=== PATIENT | female | born 1950 | race Caucasian/White ===

== ENCOUNTER → 2019-03-08 | Day surgery (SDC) | payer MEDICARE ==
[~2019-03-08] MED LIST: AMITRIPTYLINE H25 MG PO; ANTIDIARRHEAL2 MG PO; CALCIUM 600 +1 EAC8 PO; CARBAMAZEPINE100 M1 PO; CYMBALTA60 MG PO; DEXILANT60 MG PO; DIAZEPAM10 MG PO; DICYCLOMINE HCL20 MG PO; DIPYRIDAMOLE50 MG PO; FENTANYL CITRATE/PF 100MCG/2 ML INJ ONE; FISH OIL 1,2001 EACH PO; FUROSEMIDE40 MG PO; GABAPENTIN100 MG PO; HORIZANT600 MG PO; HYDROCODON-ACE1 EAC9 PO; LEVOTHYROXINE50 MCG PO; LIDOCAINE HCL 2% LOCAL INJ 5 ML SDV VIAL INJ ONE; LIDODERM700 MG TOP; MIDAZOLAM HCL 2 MG/2 ML VIAL ONE; NASONEX17 GM NS; NEXIUM40 MG PO; OMEPRAZOLE40 MG PO; ONDANSETRON ODT8 MG PO; POTASSIUM CHLO20 ME1 PO; PRENATABS RX T1 EACH PO; PROAIR HFA INH8.5 GM INH; PROPOFOL IV EMULSION 10 MG/ML 20 ML VIAL ONE; PROPRANOLOL HCL20 MG PO; ROPINIROLE HCL1 MG PO; SUCRALFATE1 GM PO; TUMS DUAL ACTI1 EACH PO; ULTRAM 50MG50 MG PO; VITAMIN B12 INJ IM; VITAMIN D32000 UNIT PO; VITAMIN D400 UNIT PO
--- OUTSIDE RECORDS SUMMARY | 2019-03-08 11:24 | XMS REPORT | Clinical Summary ---
Author Author [facility] [employer] Organization [place] [employer] Address Unknown Phone Unavailable Care Team Providers Care Contract Administration Specialist Name Role Phone Roshan Stewart MD PCP Unavailable Allergies Comments Active Allergy Reactions Severity Noted Date Cefaclor Swelling 06/01/2017 Nsaids (Non-Steroidal GI Bleeding 06/01/2017 Anti-Inflammatory Drug) Medications End Date Status Medication Sig Dispensed Refills Start Date Active PROAIR HFA 90 2 PUFFS 1 mcg/actuation inhaler NEEDED EVERY 7 4 HRS INHALATION 30 DAYS Active carisoprodol (SOMA) 350 Take 350 mg 0 MG tablet by mouth 3 7 (three) times a day. Active clopidogrel (PLAVIX) 75 Take 75 mg by 0 mg tablet mouth once 7 daily. Active diazePAM (VALIUM) 10 MG Take 10 mg by 0 tablet mouth daily 7 as needed. Active DULoxetine (CYMBALTA) 60 1 CAPSULE 0 MG capsule ONCE A DAY 7 ORALLY 90 DAYS Active levothyroxine (SYNTHROID, Take 50 mcg 3 LEVOXYL) 50 mcg tablet by mouth once 7 daily. Active potassium chloride 20 mEq 1 TABLET ONCE 1 tablet extended release A DAY ORALLY 7 90 DAYS Active propranolol (INDERAL) 20 Take 20 mg by 0 MG tablet mouth 3 7 (three) times a day. Active sucralfate (CARAFATE) 1 TAKE 1 TABLET 5 gram tablet BY MOUTH 3 7 TIMES A DAY AND AT BEDTIME Active furosemide (LASIX) 40 mg Take 40 mg by 0 tablet mouth 2 (two) times a day. Active Take 1 tablet 0 vit,[id number] 29 by mouth mg iron- 1 mg tablet per daily. tablet Active lidocaine (XYLOCAINE) 5 % APPLY TO 0 ointment AFFECTED AREA 7 3-4 TIMES PER DAY Active gabapentin enacarbil Take 600 mg 0 (HORIZANT) 600 mg tablet by mouth extended release daily. Active omega 8-wep-kra-fish oil Take by 0 (FISH OIL) 100-160-1,000 mouth. mg capsule Active cholecalciferol, vitamin Take 2,000 0 D3, (VITAMIN D3) 2,000 Units by unit capsule capsule mouth daily. Active ondansetron (ZOFRAN) 8 MG Take 8 mg by 0 tablet mouth once 7 daily. Active HYDROcodone-acetaminophen 0 (NORCO) 10-325 mg per 9 tablet Active rOPINIRole (REQUIP) 2 MG 0 tablet 9 12/15/2018 Discontinued DEXILANT 60 mg capsule Take by mouth 0 once daily. 7 09/24/2018 Discontinued gabapentin (NEURONTIN) 1 CAPSULE 0 300 mg capsule THREE TIMES A 7 DAY ORALLY 30 DAYS 09/24/2018 Discontinued HYDROcodone-acetaminophen Take 1 tablet 0 (NORCO) 10-325 mg per by mouth 7 tablet nightly as needed for severe pain (score 7-10). 12/15/2018 Discontinued ondansetron ODT Take 8 mg by 0 (ZOFRAN-ODT) 8 MG mouth every 8 disintegrating tablet (eight) hours as needed for nausea or vomiting. 10/14/2018 nicotine (NICODERM CQ) 14 Place 1 patch 30 patch 0 mg/24 hr on the skin 9 daily for 30 days. 10/08/2018 HYDROcodone-acetaminophen Take 1 tablet 20 tablet 0 (NORCO) 10-325 mg per by mouth 9 tablet nightly as needed for moderate pain for up to 20 doses. Max Daily Amount: 1 tablet 12/02/2018 Discontinued nicotine (NICODERM CQ) 14 Place 1 patch 30 patch 0 mg/24 hrIndications: on the skin 9 Traumatic closed daily for 30 displaced fracture of days. proximal end of humerus with nonunion, right 01/01/2019 nicotine (NICODERM CQ) 14 Place 1 patch 30 patch 0 mg/24 hr on the skin 9 daily for 30 days. 12/15/2018 Discontinued sulfamethoxazole-trimetho Take 1 tablet 8 tablet 0 prim (BACTRIM DS) 800-160 by mouth 2 9 mg per tablet (two) times a day for 4 days. 12/15/2018 Discontinued gabapentin (NEURONTIN) 0 600 mg tablet 9 12/29/2018 HYDROcodone-acetaminophen Take 1 tablet 35 tablet 0 (NORCO) 10-325 mg per by mouth 9 tablet every 6 (six) hours as needed for moderate pain for up to 35 doses. 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, right Pain of right forearm 09/24/2018 Closed displaced comminuted fracture of shaft of right humerus 09/24/2018 Current every day smoker 09/24/2018 Humerus fracture 09/12/2018 Other chronic pain 06/17/2017 Trigger index finger of left hand 05/21/2017 Encounters Care Team Description Date Type Specialty Elmer Zarate MD Closed displaced comminuted fracture of shaft of right humerus with routine healing, subsequent encounter (Primary Dx) 02/10/2019 Office Visit Orthopedic Surgery Elmer Zarate MD Pain of right upper extremity (Primary Dx) 01/05/2019 Office Visit Orthopedic Surgery Elmer Zarate MD 12/29/2018 Telephone Orthopedic Surgery lEmer Zarate MD 12/29/2018 Telephone Orthopedic Surgery Sebastien Franco MD 12/21/2018 Anesthesia General Surgery Event Elmer Zarate MD OPEN REDUCTION INTERNAL FIXATION OF NON UNION RIGHT HUMERUS 12/21/2018 Surgery General Surgery Elmer Zarate MD 12/21/2018 [facility] General Internal Medicine - Encounter 12/22/2018 Elmer Zarate MD 12/15/2018 Telephone Orthopedic Surgery Elmer Zarate MD 12/15/2018 Telephone Orthopedic Surgery Elmer Zarate MD 12/14/2018 Orders Only Orthopedic Surgery Elmer Zarate MD 12/14/2018 Prep for Orthopedic Surgery Surgery Elmer Zarate MD Closed displaced comminuted fracture of shaft of right humerus, sequela 12/13/2018 Hospital Radiology Encounter Elmer Zarate MD Closed displaced comminuted fracture of shaft of right humerus, sequela (Primary Dx) 12/13/2018 Transcribe Access Orders Elmer Zarate MD 12/06/2018 Telephone Orthopedic Surgery Elmer Zarate MD Closed displaced comminuted fracture of shaft of right humerus with routine healing, subsequent encounter (Primary Dx); 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, right 12/02/2018 Office Visit Orthopedic Surgery Elmer Zarate MD 12/02/2018 Telephone Orthopedic Surgery Elmer Zarate MD Right arm pain (Primary Dx); Closed comminuted fracture of shaft of right humerus, initial encounter; Current every day smoker 10/28/2018 Office Visit Orthopedic Surgery Elmer Zarate MD Pain of right forearm (Primary Dx); Closed comminuted fracture of shaft of right humerus, initial encounter; Current every day smoker; Other chronic pain 09/24/2018 Office Visit Orthopedic Surgery Elmer Zarate MD 09/24/2018 Telephone Orthopedic Surgery Elmer Zarate MD 09/23/2018 Telephone Orthopedic Surgery Liliana Koroma RN 09/13/2018 Patient Quality Outreach Cory Saldivar Jr., MD Foreman, MD Rosemarie Johnson, Alannah Guidry MD Closed displaced comminuted fracture of shaft of right humerus with routine healing, subsequent encounter (Primary Dx) 09/11/2018 Emergency General Surgery - 09/13/2018 Roshan Stewart MD Lump or mass in breast (Primary Dx) 04/07/2018 Transcribe Access Orders after 03/07/2018 Family History Medical History Relation Name Comments No Known Problems Father Diabetes Mother Heart disease Mother Hypertension Mother Relation Name Status Comments Father Mother Social History Date Tobacco Use Types Packs/Day Years Used Current Every Day Smoker Cigarettes 1 45 Smokeless Tobacco: Never Used Tobacco Cessation: Ready to Quit: Yes; Counseling Given: Yes Alcohol Use Drinks/Week oz/Week Comments Yes SOCIALLY Sex Assigned at Date Recorded Not on file Industry Job Start Date Occupation Not on file Not on file Not on file Travel End Travel History Travel Start No recent travel history available. Last Filed Vital Signs Time Taken Vital Sign Reading 12/22/2018 7:11 AM CDT Blood Pressure 96/62 12/22/2018 7:11 AM CDT Pulse 82 12/22/2018 7:11 AM CDT Temperature 36.3 C (97.4 F) 12/22/2018 7:11 AM CDT Respiratory Rate 19 12/22/2018 7:11 AM CDT Oxygen Saturation 96% - Inhaled Oxygen - Concentration 01/05/2019 2:26 PM CDT Weight 53.5 kg (118 lb) 01/05/2019 2:26 PM CDT Height 160 cm (5' 3") 01/05/2019 2:26 PM CDT Body Mass Index 20.9 Plan of Treatment Care Team Description Date Type Specialty Elmer Zarate MD [address] [place] [address] [phone] 03/24/2019 Office Visit Orthopedic Surgery Health Maintenance Due Date Last Done Comments COLONOSCOPY SCREENING 2002 SHINGLES VACCINES (#1) 2002 BREAST CANCER SCREENING 03/10/2013 03/10/2011 65+ PNEUMOCOCCAL VACCINE 2017 (1 of 2 - PCV13) INFLUENZA VACCINE 03/24/2019 Implants Device Identifier Shelf Expiration Date Model / Serial / Lot Implanted Type Area Manufactur er [id number] / / VENDOR LOT NA Prx Hum Lo Plt Rt 7h 133mm - IPM Right: Shoulder [employer] [id number] IMPLANT Implanted: Qty: 1 on 12/21/2018 by DEVICES Elmer Zarate MD [id number] / / VENDOR LOT NA 305x24 Cortical Screw - [id number] IPM Right: Shoulder [employer] Implanted: Qty: 1 on 12/21/2018 by IMPLANT Elmer Zarate MD DEVICES [id number] / / VENDOR LOT NA 3.5mm Cortical Screw 30mm - IPM Right: Shoulder [employer] [id number] IMPLANT Implanted: Qty: 1 on 12/21/2018 by Elmer Bansal MD [id number] / / Screw T15 Lp Cesar 3.5x26mm Ns - IPM N/A: N/A [employer] [id number] IMPLANT Implanted: Qty: 1 on 12/21/2018 by Elmer Bansal MD [id number] / / Screw T15 Lp Cesar 3.5x26mm Ns - IPM N/A: N/A [employer] [id number] IMPLANT Implanted: Qty: 1 on 12/21/2018 by Elmer Bansal MD [id number] / / VENDOR LOT NA Screw T15 Lp Cesar 3.5x42mm Ns - IPM Right: Shoulder [employer] [id number] IMPLANT Implanted: Qty: 1 on 12/21/2018 by DEVICES Elmer Zarate MD [id number] / / VENDOR LOT NA 4.0mm X 48mm Cancellous Locking Ortho Right: Shoulder BIOMET Screw Screw SPINE, Implanted: Qty: 1 on 12/21/2018 by Elliot DIETRICH Mark E., MD BRACING, OSTEO ([employer]) [id number] / / VENDOR LOT NA Screw Bone Canc Lkng 4x40mm Ns - Orthopedic Right: Shoulder DEPUY [id number] Trauma ORTHO-HIPS Implanted: 12/21/2018 (Quantity not Implants on file) [id number] / / VENDOR LOT NA Screw Bone Canc Lkng 4x38mm Ns - Orthopedic Right: Shoulder DEPUY [id number] Trauma ORTHO-HIPS Implanted: 12/21/2018 (Quantity not Implants on file) [id number] / / VENDOR LOT NA Screw Bone Cesar Lkng 3.5x24mm Ns - Orthopedic Right: Shoulder DEPUY [id number] Trauma ORTHO-HIPS Implanted: Qty: 1 on 12/21/2018 by Implants Elmer Zarate MD [id number] / / VENDOR LOT NA Screw Bone Cesar Lkng 3.5x24mm Ns - Orthopedic Right: Shoulder DEPUY [id number] Trauma ORTHO-HIPS Implanted: Qty: 1 on 12/21/2018 by Implants Elmer Zarate MD [id number] / / VENDOR LOT NA Screw Bone Cesar Lkng 3.5x24mm Ns - Orthopedic Right: Shoulder DEPUY [id number] Trauma ORTHO-HIPS Implanted: Qty: 1 on 12/21/2018 by Implants Elmer Zarate MD [id number] / / Screw Bone Cesar Lkng 3.5x28mm Ns - Orthopedic N/A: N/A DEPUY [id number] Trauma ORTHO-HIPS Implanted: Qty: 1 on 12/21/2018 by Elmer Mccann MD [id number] / / Screw Bone Cesar Lkng 3.5x28mm Ns - Orthopedic N/A: N/A DEPUY [id number] Trauma ORTHO-HIPS Implanted: Qty: 1 on 12/21/2018 by Implants Elmer Zarate MD [id number] / / VENDOR LOT NA Screw Bone Canc Lkng 4x38mm Ns - Orthopedic Right: Shoulder DEPUY [id number] Trauma ORTHO-HIPS Implanted: 12/21/2018 (Quantity not Implants on file) [id number] / / VENDOR LOT NA Screw Bone Canc Lkng 4x40mm Ns - Orthopedic Right: Shoulder DEPUY [id number] Trauma ORTHO-HIPS Implanted: 12/21/2018 (Quantity not Implants on file) Artificial Knees Procedures Comments Procedure Name Priority Date/Time Associated Diagnosis XR HUMERUS RIGHT Routine 02/10/2019 Closed displaced 10:02 AM CDT comminuted fracture of shaft of right humerus with routine healing, subsequent encounter XR HUMERUS RIGHT Routine 01/05/2019 Pain of right upper 2:38 PM CDT extremity HIV 1, 2 ANTIBODY Routine 12/21/2018 5:41 PM CDT HEPATITIS C ANTIBODY Routine 12/21/2018 5:41 PM CDT HEPATITIS B CORE ANTIBODY Routine 12/21/2018 IGM 5:41 PM CDT HEPATITIS B SURFACE Routine 12/21/2018 ANTIGEN 5:41 PM CDT MS AN PERIPHERAL BLOCK Routine 12/21/2018 POST-OP PAIN 1:11 PM CDT Procedure Note - Marci Zamora MD - 12/21/2018 1:11 PM CDT Peripheral Block Date/Time: 12/21/2018 12:24 PM Performed by: Marci Zamora MD Authorized by: Marci Zamora MD Patient Location: Pre-op Start Time: 12/21/2018 12:15 PM End Time: 12/21/2018 12:25 PM Reason for Block: post-op pain management Staff: Anesthesio logist: Marci Zamora MD Performed by: Anesthesio logist Preprocedu re: patient identified , IV checked, site and side verified, risks and benefits discussed, procedure verified, surgical consent complete, patient position confirmed, monitors and equipment checked, pre-op evaluation complete and site marked Time Out Performed: 12/21/2018 12:15 PM Peripheral Nerve Block: Patient Position: Supine Prep: ChloraPrep Monitoring : Blood pressure monitoring , continuous pulse oximetry and heart rate Block Type: Interscale ne Laterality : Right Injection Technique: Single injection Procedures : ultrasound guided and nerve stimulator Ultrasound documentat ion: Images saved on hard disk Local Infiltrati on (See MAR for details): Lidocaine Needle: Needle Type: Pajunk Needle Gauge: 22 G Needle Length: 5 cm Assessment : Injection Assessment : Visualized needle/loc al anesthetic surroundin g nerve, visualized pertinent vascular structures and nerves, needle tip visualized at all times during injection of medication , intermitte nt aspiration during local anesthetic administra tion and no symptoms of intraneura l/intraven ous injection Paresthesi a Pain: None Heart Rate Change: No Slow Fractionat ed Injection: Yes Block outcome: No apparent complicati ons, patient comfortabl e and patient tolerated procedure well Medication s Administer ed Bupivacain e liposome (EXPAREL), 10 mL ESTIMATED GFR Routine 12/13/2018 2:28 PM CDT URINALYSIS, AUTOMATED Routine 12/13/2018 Closed displaced WITH MICROSCOPY 2:28 PM CDT comminuted fracture of shaft of right humerus, initial encounter PARTIAL THROMBOPLASTIN Routine 12/13/2018 Closed displaced TIME (PTT) 2:28 PM CDT comminuted fracture of shaft of right humerus, initial encounter PROTHROMBIN TIME WITH INR Routine 12/13/2018 Closed displaced 2:28 PM CDT comminuted fracture of shaft of right humerus, initial encounter BASIC METABOLIC PANEL Routine 12/13/2018 Closed displaced 2:28 PM CDT comminuted fracture of shaft of right humerus, initial encounter CBC HEMOGRAM Routine 12/13/2018 Closed displaced 2:28 PM CDT comminuted fracture of shaft of right humerus, initial encounter XR CHEST 2 VW Routine 12/13/2018 Closed displaced 2:04 PM CDT comminuted fracture of shaft of right humerus, sequela XR HUMERUS RIGHT Routine 12/02/2018 Closed displaced 10:19 AM CDT comminuted fracture of shaft of right humerus with routine healing, subsequent encounter XR HUMERUS RIGHT Routine 10/28/2018 Right arm pain 10:57 AM [facility] XR HUMERUS RIGHT Routine 09/24/2018 Closed displaced 12:19 PM [facility] comminuted fracture of shaft of right humerus, initial encounter XR FOREARM 2 VW RIGHT Routine 09/24/2018 Pain of right forearm 11:33 AM [facility] XR KNEE 3 VW RIGHT Routine 09/12/2018 4:[address] CHEST WO CONTRAST STAT 09/12/2018 1:17 AM [facility] XR HUMERUS RIGHT STAT 09/12/2018 12:43 AM [facility] ESTIMATED GFR STAT 09/12/2018 12:37 AM [facility] TROPONIN STAT 09/12/2018 12:37 AM [facility] COMPREHENSIVE METABOLIC STAT 09/12/2018 PANEL 12:37 AM [facility] HC COMPLETE BLD COUNT STAT 09/12/2018 W/AUTO DIFF 12:37 AM [facility] after 03/07/2018 Results * XR Humerus Right (02/10/2019 10:02 AM CDT) Only the most recent of 6 results within the time period is included. Specimen Narrative Performed At [facility] three-view x-rays of the right proximal humerus: The reconstructive locking plate remains secured and there is no evidence of loosening or haloing around the screws.There is no evidence of implant shift or failure.Fracture sites however remain visible and I am not seeing a clear bridging new bone Performing Organization Address City/State/Zipcode Phone Number [facility] [address] [place] [address] * Hepatitis C antibody (12/21/2018 5:41 PM CDT) Hepatitis C Ab Non-reactive Non-reactive [facility] Specimen Performing Organization Address City/State/Zipcode Phone Number [facility] [place] [address] [place] [address] PATHOLOGY AND GENOMIC MEDICINE [place] [address] * Hepatitis B core antibody IgM (12/21/2018 5:41 PM CDT) Hepatitis B Non-reactive Non-reactive [place] core IgM [facility] Specimen Performing Organization Address City/State/Zipcode Phone Number [facility] [place] [place] [address] [place] [address] [facility] [address] * HIV 1, 2 antibody (12/21/2018 5:41 PM CDT) Pathologist [facility] HIV 1, 2 Non-Reactive Non-reactive [place] antibody Comment: [facility] Starting from November 20 2015, [facility] 4th generation HIV screening HOSPITAL and confirmation assays are in use at [facility], consistent with the CDC-recommended algorithm. The screening test detects antibodies to HIV-1, HIV-2 and the p24 antigen. Positive screening results will be automatically reflexed to a HIV-1/HIV-2 differentiation assay. Indeterminant HIV-1 results will be further automatically reflexed to a nucleic acid test for detection of acute infection. Western blot will no longer be performed as a confirmation test. For a quick reference guide on the testing algorithm, please refer to: http://stacks.cdc.gov/view/cdc /12482. Specimen Performing Organization Address City/State/Zipcode Phone Number [facility] [place] [place] [address] [place] [phone] [facility] [address] * Hepatitis B surface antigen (12/21/2018 5:41 PM CDT) Hepatitis B Non-reactive Non-reactive [place] surface Ag [facility] Specimen Performing Organization Address City/State/Zipcode Phone Number [facility] [place] [address] [place] [address] PATHOLOGY [facility] [address] * Estimated GFR (12/13/2018 2:28 PM CDT) Only the most recent of 2 results within the time period is included. Estimated GFR >=90 mL/min/1.73 m2 [place] Comment: [facility] G1 >=90 Normal or high G2 60-89Mildly decreased [id number] Mildly to moderately decreased S1r50-43 Moderately to severely decreased G4 15-29Severely decreased G5 <15Kidney failure The eGFR was calculated using the Chronic Kidney Disease Epidemiology Collaboration (CKD-EPI) equation. Interpretation is based on recommendations of the National Kidney Foundation-Kidney Disease Outcomes Quality Initiative (NKF-KDOQI) published in 2014. Specimen Plasma specimen Performing Organization Address City/State/Zipcode Phone Number [facility] [place] [place] [address] [place] [address] PATHOLOGY AND GENOMIC MEDICINE [place] [id number] * Urinalysis, automated with microscopy (12/13/2018 2:28 PM CDT) Color, UA Rea [facility] Appearance, UA Clear [facility] Specific 1.032 1.001 - 1.035 [place] gravity, [facility] pH, UA 5.0 5.0 - 8.5 [facility] Protein, UA 1+ (A) Negative [facility] Glucose, UA Negative Negative [facility] Ketones, UA Trace (A) Negative [facility] Bilirubin, UA 2+ (A)Comment: Confirmation of Negative [place] results no longer performed [facility] due to unavailability of [facility] Blood, UA Negative Negative [facility] Nitrite, UA Negative Negative [facility] Urobilinogen, 4.0 (A) <2.0 [facility] Leukocyte Moderate (A) Negative [place] esterase, UA [facility] Epithelial Many /HPF [place] cells, UA [facility] WBC, UA 6 (H) 0 - 5 /HPF [facility] RBC, UA 4 0 - 5 /HPF [facility] Bacteria, UA None seen None seen [facility] Calcium oxalate Moderate [place] crystals, UA [facility] Yeast, UA None seen [facility] Yeast with None seen [place] pseudohyphae, [facility] Specimen Urine Performing Organization Address City/State/Zipcode Phone Number [facility] [place] [place] [place] [address] [place] [phone] PATHOLOGY AND GENOMIC MEDICINE [facility] [address] * Partial thromboplastin time, activated (12/13/2018 2:28 PM CDT) PTT 32.9 23.0 - 36.0 sec [place] Comment: ABDIEL ARNOLD PTT therapeutic range for [facility] unfractionated heparin is HOSPITAL 61.0-112.0 seconds which corresponds to Anti-Xa 0.3-0.7 U/ml. Note:Change in Panic Value The PTT Panic Value is changing from 110 sec. to 100 sec. due to new instrumentation and reagents. Correlation studies have been performed to validate this result. Specimen Blood Performing Organization Address City/State/Zipcode Phone Number [facility] [place] [place] [address] [place] [address] PATHOLOGY AND GENOMIC MEDICINE [facility] [address] * Prothrombin time with INR (12/13/2018 2:28 PM CDT) Prothrombin 13.2 11.5 - 14.5 sec [place] time [facility] INR 1.03 [place] Comment: ABDIEL ARNOLD For patients on anticoagulant ERAN therapy, reference ranges HOSPITAL below: Indication: INR Value Treatment of Venous Thrombosis, 2.0-3.0 pulmonary emboli, or prophylaxis of a venous thrombosis, or systemic emboli. High dose, high risk patients 3.0-4.5 with mechanical valves. NOTE:INR values over 3.0 are sometimes associated with gastrointestinal hemorrhage, especially values over 4.0. Specimen Blood Performing Organization Address City/State/Zipcode Phone Number [facility] [place] [place] [address] [place] [phone] PATHOLOGY AND GENOMIC MEDICINE [facility] [address] * CBC hemogram (12/13/2018 2:28 PM CDT) [facility] WBC 4.9 4.2 - 11.0 k/uL [facility] RBC 5.75 4.04 - 5.86 m/uL [facility] HGB 19.8 (H) 11.5 - 15.3 g/dL [facility] HCT 60.5 (H) 34.0 - 45.0 % [facility] MCV 105.2 (H) 80.0 - 98.0 fL [facility] MCH 34.4 (H) 27.0 - 34.0 pg [facility] MCHC 32.7 31.5 - 36.5 g/dL [facility] RDW - SD 60.6 (H) 37.0 - 51.0 fL [facility] MPV 9.4 7.4 - 10.4 fL [facility] Platelet count 199 150 - 400 k/uL [facility] Nucleated RBC 0.00 /100 WBC [facility] Specimen Blood Performing Organization Address City/State/Zipcode Phone Number [facility] [place] [place] [address] [place] [address] PATHOLOGY AND GENOMIC MEDICINE [address] * Basic metabolic panel (12/13/2018 2:28 PM CDT) [facility] Sodium 145 135 - 150 mEq/L [facility] Potassium 4.0 3.5 - 5.0 mEq/L [facility] Chloride 100 98 - 112 mEq/L [facility] CO2 35 (H) 24 - 31 mmol/L [facility] Anion gap 10@ANIO 7 - 15 mEq/L [facility] BUN 12 7 - 18 mg/dL [facility] [facility] Creatinine 0.70 0.50 - 0.90 mg/dL [facility] Glucose 88 65 - 100 mg/dL [facility] Calcium 10.0 8.8 - 10.2 mg/dL [facility] Specimen Plasma specimen Performing Organization Address City/State/Zipcode Phone Number [facility] [place] [address] [place] [address] PATHOLOGY AND GENOMIC MEDICINE [facility] [address] [place] [place] [id number] [place] [address] * XR Chest 2 Vw (12/13/2018 2:04 PM CDT) Specimen Narrative Performed At EXAMINATION:XR CHEST 2 VW [facility] CLINICAL HISTORY:S42.351S Displaced comminuted fracture of shaft of humerusright armsequela, s42.351a COMPARISON:05/27/2017 Technique:PA and lateral chest radiographs are obtained. IMPRESSION: 1.The lungs appear emphysematous with mild interstitial prominence as before. There is mild linear scar in the right lower lobe. There is no acute consolidation. 2.There is no pleural fluid or pneumothorax. 3.The heart size and mediastinal contours are within normal limits. 4.An oblique right humeral shaft fracture is appreciated on lateral projection. The bones are osteopenic. [id number] Procedure Note Interface, Radiology Results Incoming - 12/13/2018 2:14 PM CDT EXAMINATION: XR CHEST 2 VW CLINICAL HISTORY: S42.351S Displaced comminuted fracture of shaft of humerus right arm sequela, s42.351a COMPARISON: 05/27/2017 Technique: PA and lateral chest radiographs are obtained. IMPRESSION: 1. The lungs appear emphysematous with mild interstitial prominence as before. There is mild linear scar in the right lower lobe. There is no acute consolidation. 2. There is no pleural fluid or pneumothorax. 3. The heart size and mediastinal contours are within normal limits. 4. An oblique right humeral shaft fracture is appreciated on lateral projection. The bones are osteopenic. [id number] Performing Organization Address City/[facility]/Zipcode Phone Number [facility] [address] [place] [address] * XR Forearm 2 Vw Right (09/24/2018 11:33 AM INSPECTOR BARREL) Specimen Narrative Performed At [facility] AP and lateral x-ray of the right forearm: There is some general osteopenia but no acute fractures Performing Organization Address City/[facility]/Zipcode Phone Number [facility] [address] [place] [address] * XR Knee 3 Vw Right (09/12/2018 4:54 PM INSPECTOR [facility]REL) Specimen Narrative Performed At EXAM:XR KNEE 3 VW RIGHT [facility] CLINICAL:fallbruised and swollen COMPARISON:None. IMPRESSION: 1.Right total knee arthroplasty. Hardware intact. Well aligned. 2.No acute osseous abnormality. [facility] [place]-[id number] Procedure Note Interface, Radiology Results Incoming - 09/12/2018 5:01 PM INSPECTOR [facility] EXAM: XR KNEE 3 VW RIGHT CLINICAL: fall bruised and swollen COMPARISON: None. IMPRESSION: 1. Right total knee arthroplasty. Hardware intact. Well aligned. 2. No acute osseous abnormality. [facility] [place]-[id number] Performing Organization Address City/State/Zipcode Phone Number [facility] [address] [place] [address] * CT Chest Wo Contrast (09/12/2018 1:17 AM INSPECTOR BARREL) Specimen Narrative Performed At EXAMINATION: [facility] CT CHEST WO CONTRAST CLINICAL HISTORY: chest wall brusingin sling (cannot due cxr) TECHNIQUE: Multiple axial images of the chest were obtained without intravenous contrast. The lack of intravenous contrast reduces the sensitivity of detecting solid organ disease and evaluating vasculature. Sagittal and coronal computerized reformatted images were also obtained. CT imaging was performed with iterative reconstruction technique and/or automated exposure control to reduce radiation dose. COMPARISON: None. IMPRESSION: Emphysematous changes are seen throughout the pulmonary parenchyma, most prominent of the upper lung zones. Some mild bronchiectasis is seen radiating from the hilar regions. Trace right pleural effusion. No consolidations or thorax. Heart size is normal. Coronary artery calcifications are seen. Aortic valve calcifications are identified. A few enlarged mediastinal lymph nodes are seen. This is nonspecific but could be reactive to underlying infection or inflammation. A six-month follow-up CT chest is advised. Main pulmonary artery is dilated to 3.5 cm, compatible with with pulmonary arterial hypertension. Atherosclerotic vascular calcifications are seen. Patient is status post cholecystectomy. Diverticulosis is seen of the large bowel. Postoperative appearance of stomach and small bowel. Mild anasarca. Acute comminuted fracture of the proximal diaphysis of the right humerus. CONCLUSION: Acute comminuted fracture of the proximal diaphysis of the right humerus. Nonspecific enlargement of a few mediastinal lymph nodes, which could be reactive to underlying infection or inflammation. A six-month follow-up CT chest is advised. [id number] Procedure Note Interface, Radiology Results Incoming - 09/12/2018 1:43 AM INSPECTOR BARREL EXAMINATION: CT CHEST WO CONTRAST CLINICAL HISTORY: chest wall brusing in sling (cannot due cxr) TECHNIQUE: Multiple axial images of the chest were obtained without intravenous contrast. The lack of intravenous contrast reduces the sensitivity of detecting solid organ disease and evaluating vasculature. Sagittal and coronal computerized reformatted images were also obtained. CT imaging was performed with iterative reconstruction technique and/or automated exposure control to reduce radiation dose. COMPARISON: None. IMPRESSION: Emphysematous changes are seen throughout the pulmonary parenchyma, most prominent of the upper lung zones. Some mild bronchiectasis is seen radiating from the hilar regions. Trace right pleural effusion. No consolidations or thorax. Heart size is normal. Coronary artery calcifications are seen. Aortic valve calcifications are identified. A few enlarged mediastinal lymph nodes are seen. This is nonspecific but could be reactive to underlying infection or inflammation. A six-month follow-up CT chest is advised. Main pulmonary artery is dilated to 3.5 cm, compatible with with pulmonary arterial hypertension. Atherosclerotic vascular calcifications are seen. Patient is status post cholecystectomy. Diverticulosis is seen of the large bowel. Postoperative appearance of stomach and small bowel. Mild anasarca. Acute comminuted fracture of the proximal diaphysis of the right humerus. CONCLUSION: Acute comminuted fracture of the proximal diaphysis of the right humerus. Nonspecific enlargement of a few mediastinal lymph nodes, which could be reactive to underlying infection or inflammation. A six-month follow-up CT chest is advised. [facility]-[id number] Performing Organization Address City/State/Zipcode Phone Number [facility] [address] [place] [address] * Troponin (09/12/2018 12:37 AM INSPECTOR BARREL) Troponin <0.30 0.00 - 0.30 ng/mL [facility] Comment: [facility] 0.11 - 1.49 [facility] indicate increased risk of acute [facility] syndrome. >=1.5 ng/ml Consistent with acute myocardial infarction. The diagnostic value of a single normal or non-diagnostic result is questionable.Serial samples at 2-6 hour intervals are required to rule out acute myocardial injury. Specimen Plasma specimen Performing Organization Address City/State/Zipcode Phone Number [address] [place] [address] PATHOLOGY AND GENOMIC MEDICINE [place] [id number] [address] * CBC with platelet and differential (09/12/2018 12:37 AM INSPECTOR BARREL) WBC 9.2 4.2 - 11.0 k/uL [facility] RBC 4.51 4.04 - 5.86 m/uL [facility] HGB 16.1 (H) 11.5 - 15.3 g/dL [facility] HCT 47.4 (H) 34.0 - 45.0 % [facility] MCV 105.1 (H) 80.0 - 98.0 fL [facility] MCH 35.7 (H) 27.0 - 34.0 pg [facility] MCHC 34.0 31.5 - 36.5 g/dL [facility] RDW - SD 61.9 (H) 37.0 - 51.0 fL [facility] MPV 8.9 7.4 - 10.4 fL [facility] Platelet count 226 150 - 400 k/uL [facility] Nucleated RBC 0.00 /100 WBC [facility] Neutrophils 65.5 36.0 - 66.0 % [facility] Lymphocytes 22.7 (L) 24.0 - 44.0 % [facility] Monocytes 10.3 (H) 0.0 - 6.0 % [facility] Eosinophils 0.8 0.0 - 6.0 % [facility] Basophils 0.4 0.0 - 1.2 % [facility] Immature 0.3 0.0 - 1.0 % [facility] granulocytes [facility] Specimen Blood Performing Organization Address City/State/Zipcode Phone Number [facility] [place] [address] [place] [address] PATHOLOGY AND GENOMIC MEDICINE [place] [phone] [address] * Comprehensive metabolic panel (09/12/2018 12:37 AM INSPECTOR BARREL) Sodium 139 135 - 150 mEq/L [facility] Potassium 4.8 3.5 - 5.0 mEq/L [facility] Chloride 101 98 - 112 mEq/L [facility] CO2 31 24 - 31 mmol/L [facility] Anion gap 7@ANIO 7 - 15 mEq/L [facility] BUN 10 7 - 18 mg/dL [facility] Creatinine 0.70 0.50 - 0.90 mg/dL [facility] Glucose 91 65 - 100 mg/dL [facility] Calcium 8.9 8.8 - 10.2 mg/dL [facility] Protein 5.7 (L) 6.3 - 8.3 g/dL [facility] Albumin 2.4 (L) 3.5 - 5.0 g/dL [facility] A/G ratio 0.7 0.7 - 3.8 [facility] Alkaline 109 (H) 0 - 104 U/L [place] phosphatase [facility] AST 20 10 - 35 U/L [facility] ALT 14 5 - 50 U/L [facility] Total bilirubin 0.9 0.2 - 1.2 mg/dL [facility] Specimen Plasma specimen Performing Organization Address City/State/Zipcode Phone Number [facility] [place] [address] [place] [address] PATHOLOGY AND GENOMIC MEDICINE [place] [address] [address] [place], [place] [phone] [place] [address] after 03/07/2018 Insurance Type Payer Benefit Subscriber ID Effective Phone Address Plan / Dates Group O [facility] MEDICARE AARP xxxxxxxxx [id number] MEDICARE resent [facility] Advance Directives Patient has advance care planning documents on file. For more information, blake camacho contact: Anthony Lucas[address] [place] [address]
[2019-03-08 13:15] VITALS: BP 135/89
--- NOTE | 2019-03-08 14:56 | Operative Report ---
DATE OF PROCEDURE: 03/08/2019 SURGEON: Anthony Rowland MD PROCEDURE: EGD with biopsies and esophageal dilatation. INDICATIONS FOR PROCEDURE: Dysphagia. MEDICATIONS: The patient was done under MAC, please see anesthesiologist's note. PROCEDURE IN DETAIL: With the patient in left lateral decubitus position, flexible fiberoptic Olympus gastroscope was introduced into the esophagus under direct visualization without any difficulty. There was some patchy erythema noted in distal esophagus. A minute tongue of velvety red mucosa was noted to extend proximally from the GE junction that was biopsied to rule out Thorne's. 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 The scope was then advanced with ease into the stomach and the patient is status post Lucia-en-Y. Anastomosis appeared to be intact. There were no marginal ulcers. The scope was subsequently withdrawn. The patient tolerated the procedure well. IMPRESSION: 1. Rule out Thorne esophagus. 2. Esophagus dilated to size 52-Maltese Carrillo. 3. Status post Lucia-en-Y. Anastomosis patent. No marginal ulcers. PLAN: Follow up histology. Continue Dexilant 60 mg one p.o. q.a.m. a.c. and Carafate 1 g p.o. a.c. t.i.d. and at bedtime. Anthony Rowland MD [facility] /[id number] cc: Roshan Stewart
== END | disposition home or self-care (01) ==
LOC: ENDO 10:22
PROVIDERS: ATTEND Internal Medicine Gastroenterology
DX: K22.2 Esophageal obstruction (principal); K22.8 Other specified diseases of esophagus; Z98.84 Bariatric surgery status; K21.9 Gastro-esophageal reflux disease without esophagitis; K44.9 Diaphragmatic hernia without obstruction or gangrene; M19.90 Unspecified osteoarthritis, unspecified site; G62.9 Polyneuropathy, unspecified; R06.02 Shortness of breath; I10 Essential (primary) hypertension; E03.9 Hypothyroidism, unspecified; M06.9 Rheumatoid arthritis, unspecified; Z72.0 Tobacco use; Z88.1 Allergy status to other antibiotic agents; Z79.02 Long term (current) use of antithrombotics/antiplatelets; Z80.0 Family history of malignant neoplasm of digestive organs
CPT/HCPCS: 43239; 43450; 88305; J2001; J2250; J2704; J3010

== ENCOUNTER → 2022-09-15 | Day surgery (SDC) | payer MEDICARE, OTHER ==
[2022-09-11 11:29] LABS: BASOPHILS # (AUTO) 0.1 (0.0-0.1); BASOPHILS % 1.2 % (0.0-1.0); EOSINOPHILS # (AUTO) 0.1 (0.0-0.4); EOSINOPHILS % 1.2 % (0.0-6.0); HEMATOCRIT 41.7 % (34.2-44.1); HEMOGLOBIN 12.1 g/dL (12.0-16.0); LYMPHOCYTES # (AUTO) 1.2 (1.0-3.2); MEAN CORPUSCULAR HEMOGLOBIN 26.1 pg (28-32); MEAN CORPUSCULAR VOLUME 89.9 fL (81-99); MONOCYTES # (AUTO) 0.6 (0.2-0.8); MONOCYTES % 10.9 % (4.4-11.3); NEUTROPHILS # (AUTO) 3.9 (2.1-6.9); NEUTROPHILS % 66.5 % (38.7-80.0); PLATELET COUNT 270 x10e3/uL (140-360); RED BLOOD COUNT 4.64 x10e6/uL (3.6-5.1); RED CELL DISTRIBUTION WIDTH 17.6 % (11.7-14.4)
[~2022-09-15] MED LIST changes: +ALBUTEROL SULF 0.083% NEB SOLN 3 ML NEB NEB ONE; +ALBUTEROL SULF 0.083% NEB SOLN 3 ML NEB ONE; +ALLERGY; +BENZOCAINE/TETRACAINE/BUTAMBEN AERO SPRAY 56 GM CAN ONE; +ETOMIDATE 40 MG/ 20ML VIAL IV ONE; +KETAMINE HCL INJ 50 MG/ML 10 ML VIAL ONE; -PROPOFOL IV EMULSION 10 MG/ML 20 ML VIAL ONE
== END | disposition home or self-care (01) ==
LOC: OR 11:48
PROVIDERS: ATTEND Internal Medicine Gastroenterology
DX: K20.90 Esophagitis, unspecified without bleeding (principal); K63.5 Polyp of colon; K57.30 Diverticulosis of large intestine without perforation or abscess without bleeding; K62.5 Hemorrhage of anus and rectum; K21.9 Gastro-esophageal reflux disease without esophagitis; Z98.84 Bariatric surgery status; I10 Essential (primary) hypertension; E03.9 Hypothyroidism, unspecified; M06.9 Rheumatoid arthritis, unspecified; G62.9 Polyneuropathy, unspecified; I11.0 Hypertensive heart disease with heart failure; I50.9 Heart failure, unspecified; G25.81 Restless legs syndrome; J44.9 Chronic obstructive pulmonary disease, unspecified; F41.9 Anxiety disorder, unspecified; F17.210 Nicotine dependence, cigarettes, uncomplicated; Z71.6 Tobacco abuse counseling; Z88.6 Allergy status to analgesic agent; Z88.1 Allergy status to other antibiotic agents; Z88.8 Allergy status to other drugs, medicaments and biological substances; Z01.810 Encounter for preprocedural cardiovascular examination; Z01.812 Encounter for preprocedural laboratory examination; Z79.02 Long term (current) use of antithrombotics/antiplatelets; Z79.899 Other long term (current) drug therapy; Z80.0 Family history of malignant neoplasm of digestive organs
CPT/HCPCS: 36415; 43450; 45378; 45380; 45385; 85025; 93005; J2001; J2250; J3010